=== PATIENT | female | born 1955 | race Caucasian/White ===

== ENCOUNTER 2018-04-03 07:42 | Inpatient (IN) | payer OTHER ==
[~2018-04-03 07:42] MED LIST: DEXAMETHASONE 4 MG/ML 1 ML INJ; ROCURONIUM 50 MG INJ
[2018-04-03] MEDS: CEFAZOLIN 1 GM/50 ML (PMX) 50 ML IVPB (09:00)
[2018-04-03] MEDS: SOD CHLORIDE 0.9% 1,000 ML IV (09:06)
[2018-04-03] MEDS ORDERED: PROPOFOL 40 ML (10:54)
[2018-04-03] MEDS ORDERED: LIDOCAINE 2% (SDV) 5 ML INJ (10:54)
[2018-04-03] MEDS ORDERED: MIDAZOLAM 1 MG/ML 2 ML INJ (10:54)
[2018-04-03] MEDS ORDERED: CEFAZOLIN 1 GM INJ (10:54)
[2018-04-03] MEDS ORDERED: ROCURONIUM 50 MG INJ (10:54)
[2018-04-03] MEDS ORDERED: ONDANSETRON 4 MG INJ (10:55)
[2018-04-03] MEDS ORDERED: OXYCODONE/ACETAMINOPHEN (5/325) TAB PO ×2 (11:00)
[2018-04-03] MEDS ORDERED: ALBUTEROL 0.083% (NEB) 2.5 MG/3 ML AMP HHN (11:00)
[2018-04-03] MEDS ORDERED: FENTAnyl 50 MCG/ML VIAL IV ×2 (11:00)
[2018-04-03] MEDS ORDERED: MEPERIDINE 25 MG INJ IV (11:00)
[2018-04-03] MEDS ORDERED: ONDANSETRON 4 MG INJ IV (11:00)
[2018-04-03] MEDS ORDERED: morphine (1 MG/ML) 10ML SYRINGE IV ×2 (11:00)
[2018-04-03] MEDS ORDERED: HYDROmorphONE 1 MG/5 ML IV SYRINGE IV ×2 (11:00)
[2018-04-03] MEDS ORDERED: DIPHENHYDRAMINE 50 MG INJ IV (11:00)
[2018-04-03] MEDS ORDERED: ACETAMINOPHEN 1000MG/100ML IV 100 ML (11:27)
[2018-04-03] MEDS ORDERED: EPHEDrine 25 MG/5 ML SYG (11:40)
[2018-04-03] MEDS: POLYMYXIN/BACITRACIN 1L IRRIG (11:45)
[2018-04-03] MEDS ORDERED: SUGAMMADEX SODIUM 200 MG/2 ML VIAL IV ×2 (11:49→12:48)
[2018-04-03] MEDS ORDERED: FAMOTIDINE 20 MG INJ (11:51)
[2018-04-03] MEDS ORDERED: CLINDAMYCIN 600 MG/D5W (PMX) 50 ML IVPB (12:30)
[2018-04-03] MEDS: LABETALOL HCL 20MG INJ IV ×2 (13:24→13:56)
[2018-04-03] MEDS: D5W-0.45 NACL + KCL 20 MEQ 1,000 ML IV ×2 (15:27→22:55)
[2018-04-03] MEDS ORDERED: GLUCAGON 1 MG INJ IM (16:00)
[2018-04-03] MEDS ORDERED: DEXTROSE 50% 50 ML SYRINGE IV ×2 (16:00)
[2018-04-03] MEDS ORDERED: GLUCOSE GEL 15 GRAM TUBE PO ×2 (16:00)
[2018-04-03] MEDS ORDERED: GLUCOSE GEL 15 GRAM TUBE BUCCAL (16:00)
[2018-04-03] MEDS: morphine 2 MG INJ IV ×2 (16:13→23:01)
[2018-04-03] MEDS: Insulin NOVOLOG SS MILD Algorithm (NPO/TPN/ENTERAL FEEDS) SC (17:25)
[2018-04-03] MEDS ORDERED: INSULIN ASPART [NOVOLOG] 3 ML PEN SC (18:00)
[2018-04-04] MEDS: Insulin NOVOLOG SS MILD Algorithm (NPO/TPN/ENTERAL FEEDS) SC ×2 (00:40→05:29)
[2018-04-04] MEDS: D5W-0.45 NACL + KCL 20 MEQ 1,000 ML IV ×2 (00:54→10:26)
[2018-04-04] MEDS: PANTOPRAZOLE 40 MG INJ IV (05:27)
[2018-04-04] MEDS: morphine 2 MG INJ IV ×5 (05:35→20:42)
[2018-04-04 05:58] LABS: ADD MAN DIFF? NO
[2018-04-04] MEDS ORDERED: PANTOPRAZOLE (EC) 40 MG TAB PO (06:00)
[2018-04-04 06:04] LABS: BASOPHILS % 0.1 % (0.0-2.0); HEMATOCRIT 34.7 % (37.0-47.0); HEMOGLOBIN 11.7 g/dl (12.0-16.0); LYMPHOCYTES % 8.9 % (15.0-51.0); MEAN CORPUSCULAR HGB CONC 33.7 g/dl (32.0-37.0); MEAN CORPUSCULAR VOLUME 91.8 fl (82.0-101.0); MEAN PLATELET VOLUME 10.8 fl (7.4-10.4); MONOCYTE # 0.7 10^3/ul (0.3-0.9); NEUTROPHIL # 9.5 10^3/ul (1.6-7.5); NEUTROPHILS % 84.4 % (39.0-77.0); PLATELET COUNT 255 10^3/UL (140-415); RED BLOOD COUNT 3.78 10^6/ul (4.20-5.40); RED CELL DISTRIBUTION WIDTH 12.2 % (11.5-14.5)
[2018-04-04 06:04] LABS: WHITE BLOOD COUNT 11.3 10^3/ul (4.8-10.8)
[2018-04-04 06:09] LABS: HEMOGLOBIN A1C 7.5 % (0-5.9)
[2018-04-04 06:29] LABS: ALANINE AMINOTRANSFERASE 18 IU/L (13-69); ALBUMIN 3.9 g/dl (3.3-4.9); ALKALINE PHOSPHATASE 52 IU/L (42-121); ANION GAP 14 (8-16); ASPARTATE AMINO TRANSFERASE 20 IU/L (15-46); BILIRUBIN,INDIRECT 0.4 mg/dl (0-1.1); BILIRUBIN,TOTAL 0.4 mg/dl (0.2-1.3); BLOOD UREA NITROGEN 14 mg/dl (7-20); CALCIUM 8.8 mg/dl (8.4-10.2); CARBON DIOXIDE 25 mmol/L (21-31); CHLORIDE 104 mmol/L (97-110); CREATININE 0.64 mg/dl (0.44-1.00); GLUCOSE 250 mg/dl (70-220); POTASSIUM 4.8 mmol/L (3.5-5.1); SODIUM 138 mmol/L (135-144); TOTAL PROTEIN 6.5 g/dl (6.1-8.1)
[2018-04-04] MEDS: ENALAPRIL 20 MG TAB PO (08:31)
[2018-04-04] MEDS: INSULIN ASPART [NOVOLOG] 3 ML PEN SC ×3 (11:37→20:41)
[2018-04-05] MEDS: 1/2 NS + KCL 20 MEQ 1,000 ML IV ×4 (00:13→20:44)
[2018-04-05] MEDS: morphine 2 MG INJ IV ×4 (01:34→08:37)
[2018-04-05] MEDS: PANTOPRAZOLE 40 MG INJ IV (05:00)
[2018-04-05 05:17] LABS: ADD MAN DIFF? NO
[2018-04-05 05:22] LABS: BASOPHILS % 0.1 % (0.0-2.0); EOSINOPHILS % 0.3 % (0.0-7.0); HEMATOCRIT 34.5 % (37.0-47.0); HEMOGLOBIN 11.5 g/dl (12.0-16.0); LYMPHOCYTES # 1.1 10^3/ul (0.8-2.9); MEAN CORPUSCULAR HEMOGLOBIN 30.9 pg (29.0-33.0); MEAN CORPUSCULAR HGB CONC 33.3 g/dl (32.0-37.0); MEAN CORPUSCULAR VOLUME 92.7 fl (82.0-101.0); MEAN PLATELET VOLUME 10.4 fl (7.4-10.4); MONOCYTE # 0.6 10^3/ul (0.3-0.9); MONOCYTES % 8.4 % (0.0-11.0); NEUTROPHIL # 5.1 10^3/ul (1.6-7.5); NEUTROPHILS % 74.8 % (39.0-77.0); PLATELET COUNT 210 10^3/UL (140-415); RED BLOOD COUNT 3.72 10^6/ul (4.20-5.40)
[2018-04-05 05:22] LABS: WHITE BLOOD COUNT 6.8 10^3/ul (4.8-10.8)
[2018-04-05] MEDS: metFORMIN 500 MG TAB PO ×2 (08:00→17:37)
[2018-04-05] MEDS: ENALAPRIL 20 MG TAB PO (08:28)
[2018-04-05] MEDS: INSULIN ASPART [NOVOLOG] 3 ML PEN SC ×3 (08:35→17:36)
[2018-04-05] MEDS: ONDANSETRON 4 MG INJ IV ×2 (09:21→16:01)
[2018-04-05] MEDS: KETOROLAC 15 MG INJ IV ×2 (12:17→17:40)
[2018-04-05] MEDS: POLYETHYLENE GLYCOL 17 GM PACKET PO (15:45)
[2018-04-05] MEDS: hydrALAzine 20 MG INJ IV (15:47)
[2018-04-05] MEDS: Insulin NOVOLOG SS MILD Algorithm (SS with meals and bedtime) SC (20:44)
[2018-04-05] MEDS: HYDROmorphONE 0.5 MG/0.5 ML SYG IV (22:48)
[2018-04-06] MEDS: KETOROLAC 15 MG INJ IV ×5 (00:06→23:50)
[2018-04-06] MEDS: hydrALAzine 20 MG INJ IV (03:07)
[2018-04-06] MEDS: 1/2 NS + KCL 20 MEQ 1,000 ML IV ×2 (05:01→17:30)
[2018-04-06 05:05] LABS: ADD MAN DIFF? NO
[2018-04-06 05:07] LABS: BASOPHILS % 0.1 % (0.0-2.0); EOSINOPHILS # 0.1 10^3/ul (0.0-0.5); EOSINOPHILS % 1.5 % (0.0-7.0); HEMATOCRIT 35.7 % (37.0-47.0); HEMOGLOBIN 12.1 g/dl (12.0-16.0); LYMPHOCYTES # 1.8 10^3/ul (0.8-2.9); LYMPHOCYTES % 24.8 % (15.0-51.0); MEAN CORPUSCULAR HEMOGLOBIN 30.7 pg (29.0-33.0); MEAN CORPUSCULAR HGB CONC 33.9 g/dl (32.0-37.0); MEAN CORPUSCULAR VOLUME 90.6 fl (82.0-101.0); MEAN PLATELET VOLUME 10.2 fl (7.4-10.4); MONOCYTE # 0.6 10^3/ul (0.3-0.9); MONOCYTES % 8.6 % (0.0-11.0); NEUTROPHIL # 4.8 10^3/ul (1.6-7.5); NEUTROPHILS % 64.6 % (39.0-77.0); PLATELET COUNT 224 10^3/UL (140-415); RED BLOOD COUNT 3.94 10^6/ul (4.20-5.40); RED CELL DISTRIBUTION WIDTH 11.9 % (11.5-14.5)
[2018-04-06 05:07] LABS: WHITE BLOOD COUNT 7.4 10^3/ul (4.8-10.8)
[2018-04-06 05:22] LABS: ANION GAP 12 (8-16); BLOOD UREA NITROGEN 13 mg/dl (7-20); CARBON DIOXIDE 25 mmol/L (21-31); CHLORIDE 103 mmol/L (97-110); CREATININE 0.57 mg/dl (0.44-1.00); GLUCOSE 156 mg/dl (70-220); POTASSIUM 4.2 mmol/L (3.5-5.1); SODIUM 136 mmol/L (135-144)
[2018-04-06] MEDS: PANTOPRAZOLE 40 MG INJ IV (06:26)
[2018-04-06] MEDS: metFORMIN 500 MG TAB PO ×2 (08:32→17:30)
[2018-04-06] MEDS: Insulin NOVOLOG SS MILD Algorithm (SS with meals and bedtime) SC ×4 (08:33→21:00)
[2018-04-06] MEDS: ENALAPRIL 20 MG TAB PO (08:34)
[2018-04-06] MEDS: POLYETHYLENE GLYCOL 17 GM PACKET PO (13:05)
[2018-04-07] MEDS: HYDROCODONE/APAP (5/325) TAB PO (01:39)
[2018-04-07] MEDS: hydrALAzine 20 MG INJ IV (02:08)
[2018-04-07] MEDS: PANTOPRAZOLE 40 MG INJ IV (05:47)
[2018-04-07] MEDS: KETOROLAC 15 MG INJ IV ×2 (05:47→11:35)
[2018-04-07] MEDS: 1/2 NS + KCL 20 MEQ 1,000 ML IV (07:00)
[2018-04-07] MEDS: ENALAPRIL 20 MG TAB PO (07:56)
[2018-04-07] MEDS: Insulin NOVOLOG SS MILD Algorithm (SS with meals and bedtime) SC ×2 (07:58→11:30)
[2018-04-07] MEDS: metFORMIN 500 MG TAB PO (08:00)
== END 2018-04-07 13:00 | disposition home or self-care (01) | DRG 940 ==
LOC: SDS 07:42 → REC 14:36 → PP2 15:11
PROVIDERS: Surgery Surgical Oncology
PROC: 0WUF0JZ Supplement Abdominal Wall with Synthetic Substitute, Open Approach (ICD-10-PCS; principal; 2018-04-03 10:30)
DX: G89.18 Other acute postprocedural pain (principal); K43.0 Incisional hernia with obstruction, without gangrene; E11.9 Type 2 diabetes mellitus without complications; I10 Essential (primary) hypertension; Z79.4 Long term (current) use of insulin; B18.2 Chronic viral hepatitis C; R11.0 Nausea
CPT/HCPCS: 80048; 80053; 82962; 83036; 85025; 88302; 88305; 97116; 97162; 97530; 99217; G0378